=== PATIENT | female | born 1945 | race Caucasian/White ===

== ENCOUNTER → 2020-02-08 | Outpatient (CLI) | payer MEDICARE, BC ==
--- NOTE | 2020-02-08 12:23 | RAD ---
EXAM: DUAL ENERGY X-RAY ABSORPTIOMETRY (DEXA). HISTORY: Postmenopausal screening. FINDINGS: The lowest measured T-score is -1.8 in the right distal radius, based on a bone mineral density of 0.584 g/cm^2. Refer to the worksheets for full detail. No comparison examinations are available. IMPRESSION: Low bone mass. Bone mineral density yields a T-score between -1.0 and -2.5. Fracture risk is increased. FRAX was not calculated. METHODOLOGY: Dual energy x-ray absorptiometry was performed to measure bone mineral density. The following analysis is based on the 2019 Official Positions of the International Society for Clinical Densitometry: Measurements of the hips and the average of L1-L4 are preferred. When the spine and/or hip cannot be feasibly measured or interpreted, or in the setting of hyperparathyroidism, distal radial bone mineral density may be measured. The lumbar spine T-score is based on the average bone mineral density of L1-L4. In the setting of artifact or anatomic abnormality, some lumbar levels may be excluded, and the remaining levels used for calculation. A single lumbar level is not used for diagnosis, and if only a single level is available for assessment, another anatomic site will be used to assign a diagnosis. The hip T-score is based on the bone mineral density measurement of the femoral neck or total proximal femur of either side, whichever is lowest. Bilateral mean values are not used for diagnosis. The forearm T-score is derived from 33% of the distal radius of the nondominant forearm. For postmenopausal and perimenopausal women, and men age 50 or older, of all ethnic groups, T-scores are calculated through comparison of the current measurement with the NHANES III database standard for females aged 20-29 years. The lowest T-score of the evaluated anatomic sites is used to assign a diagnosis based on the World Health Organization densitometric classification. In premenopausal females and males younger than age 50, a Z-score is calculated based on population specific reference data for patient sex and self-reported ethnicity. Electronically signed by: Jessenia Yen MD (02/08/2020 12:20 PM) [facility]
--- NOTE | 2020-02-12 10:43 | RAD ---
BILATERAL SCREENING MAMMOGRAM History: Routine screening. Comparison: 06/15/2018. Technique: Routine bilateral digital mammogram views were obtained. Findings: Breast Tissue Density B : There are scattered areas of fibroglandular density. There are no dominant masses, suspicious microcalcifications, or architectural distortion. Biopsy clip marker involves the left upper-outer breast. IMPRESSION: No mammographic evidence of malignancy. Recommend routine screening. BI-RADS category 1: Negative. The images were reviewed with computer aided detection. Patient information is entered into the reminder system with a target due date for the next screening mammogram. Mammography is the most sensitive method for finding small breast cancers, but it does not detect them all and is not a substitute for careful clinical examination. A negative mammogram does not negate a clinically suspicious finding and should not result in delay in biopsying a clinically suspicious abnormality. "Our facility is accredited by the [employer] Mammography Program." Electronically signed by: Jeferson Saavedra MD (02/12/2020 10:40 AM) [id number]
== END ==
LOC: MAMMO 09:25
PROVIDERS: ATTEND Family Medicine
DX: Z12.31 Encounter for screening mammogram for malignant neoplasm of breast (principal); Z13.820 Encounter for screening for osteoporosis; M89.9 Disorder of bone, unspecified; N95.9 Unspecified menopausal and perimenopausal disorder
CPT/HCPCS: 77067; 77080; 77081

== ENCOUNTER → 2020-06-05 | Outpatient (CLI) | payer MEDICARE, BC ==
--- NOTE | 2020-06-05 17:29 | RAD ---
EXAM: Left knee, 4 views. HISTORY: Pain. COMPARISON: None. FINDINGS: 4 views of the left knee are obtained. There is no fracture, dislocation or subluxation. Th ere is enthesopathy along the superior patella. There is no significant joint effusion. IMPRESSION: No acute osseous finding. Electronically signed by: Glory Colon MD (06/05/2020 5:27 PM) [id number]
== END ==
LOC: DXRAD 16:05
PROVIDERS: ATTEND Family Medicine
DX: M76.52 Patellar tendinitis, left knee (principal)
CPT/HCPCS: 73564

== ENCOUNTER → 2020-12-16 | Outpatient (CLI) | payer MEDICARE, BC ==
--- NOTE | 2020-12-16 17:15 | RAD ---
EXAM: CHEST 2 VIEWS. HISTORY: Shortness of breath, edema. COMPARISON: None. FINDINGS: Frontal and lateral views of the chest are obtained. There are interstitial infiltrates in the lung bases. There are no confluent infiltrates. There is no pneumothorax or pleural effusion. The heart is mildly enlarged. IMPRESSION: 1. Basilar atelectasis versus mild pulmonary edema. 2. Mild cardiomegaly. Electronically signed by: Jessenia Yen MD (12/16/2020 5:13 PM) [id number]
== END ==
LOC: RAD 16:40
PROVIDERS: ATTEND Family Medicine
DX: I51.7 Cardiomegaly (principal); R91.8 Other nonspecific abnormal finding of lung field
CPT/HCPCS: 71046

== ENCOUNTER → 2020-12-27 | Outpatient (CLI) | payer MEDICARE, BC ==
[~2020-12-27] MED LIST: IOHEXOL 350 MG/ML 100 ML VIAL. IV ONE
--- NOTE | 2020-12-27 11:04 | RAD ---
CTA CHEST History: Shortness of breath. Fluid retention. Rule out PE. Comparison: None. Technique: CTA of the pulmonary arteries with intravenous contrast. 3-D postprocessing was performed. Findings: Pulmonary arteries: No pulmonary embolism. Aorta and great vessels: No aneurysm or dissection of the aortic arch or thoracic aorta. Thyroid: No significant abnormalities. Mediastinum and makayla: No mediastinal masses or adenopathy is seen. Esophagus: The visualized esophagus is normal. Heart: The heart is normal in size. There is no pericardial effusion. Airways, Lungs, Pleura: Mild dependent changes. No significant airspace consolidation. No pleural eff usion or pneumothorax. Upper abdomen: Limited evaluation of the upper abdomen is unremarkable. Osseous structures and soft tissues: Multilevel degenerative changes in the thoracic spine with promi nent marginal osteophytes. No suspicious lytic or blastic lesions. Impression: 1. No pulmonary embolism, aortic aneurysm or aortic dissection. ------ Exposure: One or more of the following individualized dose reduction techniques were utilized for thi s examination: 1. Automated exposure control 2. Adjustment of the mA and/or kV according to patient size 3. Use of iterative reconstruction technique. Electronically signed by: Isaiah Dawson MD (12/27/2020 11:02 AM) [id number]
== END ==
LOC: CT 09:45
PROVIDERS: ATTEND Family Medicine
DX: R06.02 Shortness of breath (principal); M47.814 Spondylosis without myelopathy or radiculopathy, thoracic region; M25.78 Osteophyte, vertebrae
CPT/HCPCS: 71275; Q9967

== ENCOUNTER → 2021-03-13 | Outpatient (CLI) | payer MEDICARE, BC ==
[~2021-03-13] MED LIST changes: +IOHEXOL 300 MG/ML 75 ML VIAL. IV ONE; -IOHEXOL 350 MG/ML 100 ML VIAL. IV ONE
--- NOTE | 2021-03-13 15:42 | RAD ---
CT abdomen pelvis with and without contrast dated 03/13/2021. COMPARISON: 12/27/2020 Clinical data indication: Microscopic hematuria. TECHNIQUE: Contiguous axial imaging the abdomen pelvis performed with and without the administration of 75 cc Om nipaque 300. Study was performed as dedicated CT urogram using split bolus technique and 10 minute de layed images. One or more of the following individualized dose reduction techniques were utilized for this examinat ion: 1. Automated exposure control 2. Adjustment of the mA and/or kV according to patient size 3. Use of iterative reconstruction technique. FINDINGS: Precontrast imaging shows no evidence of calcific renal or ureteral stone. Slight malrotation of the right kidney. There is also some cortical scarring at the lower pole. No calculus within the urinary bladder, although evaluation is limited due to beam hardening artifact from bilateral hip prosthesis. Postcontrast imaging shows symmetric bilateral renal enhancement. No evidence of mass. There is symme tric filling of the bilateral renal collecting systems. No apparent urothelial lesion. The proximal a nd mid ureters are fairly well opacified. The distal ureters are not well evaluated due to incomplete opacification and beam hardening artifact. Urinary bladder is incompletely distended and not well ev aluated. No apparent bladder wall thickening or mucosal lesion. Liver is of diffuse low density suggesting mild fatty infiltration. No apparent mass. Spleen is jan l in size. Pancreas, adrenal glands and gallbladder are unremarkable. Unopacified GI tract normal in caliber and contour. No apparent bowel wall thickening. Appendix is not clearly identified. No inflam matory changes in the mesentery. No adenopathy or ascites. Small umbilical hernia containing only fat . Images of pelvis show surgical absence of the uterus. No free fluid. No pelvic adenopathy. Bone windows show no acute finding. Multilevel spondylosis. Images of lung bases show a 4 mm noncalci fied pulmonary nodule in the lingula on image 1, stable from prior study. Heart size upper limits of normal. No pleural or pericardial effusion. IMPRESSION: 1. No evidence of renal stone, renal mass or hydronephrosis. 2. The distal ureters and urinary bladder are not well evaluated due to artifact. There is no apparen t urothelial lesion or bladder mucosal lesion. 3. Mild fatty infiltration the liver. 4. Small umbilical hernia containing only fat. 5. Small noncalcified pulmonary nodule in the lingula, nonspecific but unchanged from prior study. Electronically signed by: Archie Lang MD (03/13/2021 3:40 PM) [email or web address]
== END ==
LOC: CT 14:41
PROVIDERS: ATTEND Family Medicine
DX: K76.0 Fatty (change of) liver, not elsewhere classified (principal); K42.9 Umbilical hernia without obstruction or gangrene; R91.1 Solitary pulmonary nodule; M47.819 Spondylosis without myelopathy or radiculopathy, site unspecified
CPT/HCPCS: 74178; Q9967

== ENCOUNTER → 2021-05-16 | Outpatient (CLI) | payer MEDICARE, BC ==
--- NOTE | 2021-05-16 15:20 | RAD ---
INDICATION: Reason: DISEASE OF SALIVARY GLAND, LUMP / Spl. Instructions: PAROTID GLAND / History: COMPARISON: None. FINDINGS: Focused ultrasound images are obtained of the bilateral parotid gland. Right pulmonary gland is 53 x 35 x 18 mm. Left parotid gland is 54 x 35 x 15 mm. 5 mm hypoechoic lesion is seen within the right parotid gland. There is also some mild prominence of the subcutaneous fat on the right compared to the left measurin g up to 9 mm in thickness compared to 6 mm on the left. IMPRESSION: * There is a hypoechoic lesion identified within the right parotid gland with some low level architect internship al echoes within. Could be from a complex cystic lesion of the parotid. Nonspecific appearance with s ome possible causes including benign etiologies such as Warthin tumor but given that the appearance i s nonspecific it may be helpful to obtain a follow-up examination to ensure no growth to exclude a hi gher grade solid necrotic mass. Electronically signed by: Jf Eli MD (05/16/2021 3:17 PM) [id number]
== END ==
LOC: US 12:58
PROVIDERS: ATTEND Family Medicine
DX: K11.9 Disease of salivary gland, unspecified (principal)
CPT/HCPCS: 76881